=== PATIENT | female | born 1990 | race African-American/Black ===

== ENCOUNTER 2018-04-19 04:06 | Emergency (ER) | payer OTHER ==
[~2018-04-19] VITALS: Ht 170.2 cm; Wt 65.8 kg
[2018-04-19] MEDS ORDERED: PENICILLIN V P500 MG PO (04:17)
[2018-04-19] MEDS ORDERED: TRAMADOL 50 MG50 MG PO (04:17)
[2018-04-19] MEDS ORDERED: NORVASC10 MG PO (04:21)
[2018-04-19] MEDS ORDERED: HYDROCHLOROTH12.5 M2 PO (04:21)
[2018-04-19] MEDS ORDERED: CELEXA20 MG PO (04:22)
[2018-04-19] MEDS ORDERED: CLONIDINE0.1 PO (04:50)
== END 2018-04-19 05:02 | disposition home or self-care (01) ==
LOC: ER 04:06
DX: K02.9 Dental caries, unspecified (principal); K04.7 Periapical abscess without sinus; I10 Essential (primary) hypertension; Z91.14 Patient's other noncompliance with medication regimen; F41.9 Anxiety disorder, unspecified

== ENCOUNTER 2018-09-07 07:26 | Emergency (ER) | payer OTHER ==
[~2018-09-07] VITALS: Ht 167.6 cm; Wt 65.8 kg
[~2018-09-07 07:26] MED LIST: CELEXA20 MG PO; CLONIDINE0.1 PO; HYDROCHLOROTH12.5 M2 PO; NORVASC10 MG PO; PENICILLIN V P500 MG PO; TRAMADOL 50 MG50 MG PO
[2018-09-07] MEDS ORDERED: CELEXA20 MG PO (07:41)
[2018-09-07 07:50] LABS: URINE BILIRUBIN NEGATIVE (Negative); URINE BLOOD NEGATIVE (Negative); URINE CLARITY CLEAR; URINE COLOR YELLOW; URINE GLUCOSE-RANDOM* NEGATIVE (Negative); URINE KETONES NEGATIVE (Negative); URINE LEUKOCYTES-REFLEX NEGATIVE (Negative); URINE NITRITE-REFLEX NEGATIVE (Negative); URINE PROTEIN (DIPSTICK) NEGATIVE (Negative)
[2018-09-07 08:24] LABS: HEMATOCRIT 38.3 % (37.0-47.0); HEMOGLOBIN 13.2 gm/dL (12.0-15.0); MCH 34.5 pg (26.0-34.0); MCHC 34.5 g/dL (28.0-37.0); MCV 100.2 fL (80.0-100.0); PLATELET COUNT 214 thou/uL (150-400); RBC 3.82 mil/uL (4.20-5.00); RDW 15.2 % (10.5-14.5); WBC 2.8 thou/uL (4.0-11.0)
[2018-09-07 08:30] LABS: CALCIUM 9.5 mg/dL (8.5-10.1); CREATININE 0.8 mg/dL (0.6-1.0); POTASSIUM 3.4 mmol/L (3.5-5.1)
[2018-09-07 09:01] LABS: ABSOLUTE NEUTROPHILS 1.3 thou/uL (1.4-8.2)
[2018-09-07 09:02] LABS: ANISOCYTOSIS 1+; MACROCYTES 1+
[2018-09-07] MEDS ORDERED: LISINOPRIL10 MG PO (11:04)
[2018-09-07 11:18] VITALS: BP 171/106
== END 2018-09-07 11:20 | disposition home or self-care (01) ==
LOC: ER 07:26
PROVIDERS: Student in an Organized Health Care Education/Training Program
DX: I10 Essential (primary) hypertension (principal); F41.9 Anxiety disorder, unspecified